=== PATIENT | female | born 1940 | race Caucasian/White ===

== ENCOUNTER 2018-07-21 08:46 | Emergency (ER) | payer OTHER ==
[~2018-07-21] VITALS: Ht 165.1 cm; Wt 72.7 kg
[2018-07-21 08:48] VITALS: Ht 165.1 cm; Wt 72.7 kg
[2018-07-21] MEDS ORDERED: LISINOPRIL10 MG PO (08:51)
[2018-07-21] MEDS ORDERED: LEVO-T125 MCG PO (08:51)
[2018-07-21] MEDS ORDERED: NEXIUM20 MG PO (08:52)
[2018-07-21] MEDS ORDERED: ALENDRONATE SOD10 MG PO (08:53)
[2018-07-21] MEDS ORDERED: CYCLOBENZAPRINE10 MG PO (10:11)
[2018-07-21] MEDS ORDERED: DILAUDID2 MG PO (10:13)
[2018-07-21 11:11] VITALS: BP 145/79
== END 2018-07-21 11:12 | disposition home or self-care (01) ==
LOC: D.ER 08:46
DX: S39.012A Strain of muscle, fascia and tendon of lower back, initial encounter (principal); X50.9XXA Other and unspecified overexertion or strenuous movements or postures, initial encounter; Y93.89 Activity, other specified; Y92.89 Other specified places as the place of occurrence of the external cause

== ENCOUNTER 2018-09-10 17:50 | Emergency (ER) | payer OTHER ==
[~2018-09-10] VITALS: Ht 165.1 cm; Wt 73.6 kg
[~2018-09-10 17:50] MED LIST: ALENDRONATE SOD10 MG PO; CYCLOBENZAPRINE10 MG PO; DILAUDID2 MG PO; LEVO-T125 MCG PO; LISINOPRIL10 MG PO; NEXIUM20 MG PO
[2018-09-10 17:55] VITALS: Ht 165.1 cm; Wt 73.6 kg
[2018-09-10] MEDS ORDERED: PROTONIX40 MG PO (17:58)
[2018-09-10 18:51] LABS: ALBUMIN 3.2 g/dL (3.4-5.0); ALKALINE PHOSPHATASE 29 U/L (46-116); ALT (SGPT) 21 U/L (10-68); BILIRUBIN - TOTAL 0.19 mg/dL (0.2-1.3); CALC OSMOLALITY 286 mosm/kg (275-300); CALCIUM 7.8 mg/dL (8.5-10.1); CARBON DIOXIDE 26.4 mmol/L (21.0-32.0); CHLORIDE - SERUM 112 mmol/L (98-107); CREATININE - SERUM 0.9 mg/dL (0.6-1.3); GLUCOSE 125 mg/dL (74-106); POTASSIUM - SERUM 4.1 mmol/L (3.5-5.1); PROTEIN - SERUM 5.6 g/dL (6.4-8.2); SODIUM 143 mmol/L (136-145); UREA NITROGEN 14 mg/dL (7-18); eGFR NON AFRICAN AMERICAN 64 mL/min (90-120)
[2018-09-10 18:56] LABS: AMYLASE - SERUM 33 U/L (25-115); BASOPHILS 0.4 % (0-2); EOSINOPHILS 0.4 % (0-7); HEMATOCRIT 34.7 % (36.0-48.0); HEMOGLOBIN 11.6 g/dL (12-16); IMMATURE GRANULOCYTES 0.2 % (0-5); LIPASE 193 U/L (73-393); LYMPHOCYTES 12.2 % (15-50); MCH 30.5 pg (26.0-34.0); MCHC 33.4 g/dL (31.0-37.0); MCV 91.3 fL (80.0-100.0); MEAN PLATELET VOLUME 10.6 fL (7.4-10.4); NEUTROPHILS 79.8 % (40-80); PLATELET COUNT 161 10x3/uL (130-400); RDW 13.2 % (11.5-14.5); TROPONIN-I < 0.017 ng/mL (0.000-0.060); WBC 5.2 10x3/uL (4.8-10.8)
[2018-09-10 19:06] LABS: APPEARANCE CLEAR (CLEAR); BACTERIA FEW /hpf (NONE SEEN); BILIRUBIN NEGATIVE (NEGATIVE); COLOR YELLOW (YELLOW); GLUCOSE NEGATIVE (NEGATIVE); KETONE NEGATIVE (NEGATIVE); NITRITE NEGATIVE (NEGATIVE); PROTEIN NEGATIVE (NEGATIVE); RED CELLS - URINE OCC /hpf (0-5); UROBILINOGEN NORMAL (NORMAL); WHITE CELLS - URINE OCC /hpf (0-5)
[2018-09-10] MEDS ORDERED: ONDANSETRON8 MG/TAB PO (19:43)
[2018-09-10] MEDS ORDERED: CIPRO500 MG PO (19:43)
[2018-09-10 21:24] VITALS: BP 138/77
== END 2018-09-10 21:25 | disposition home or self-care (01) ==
LOC: D.ER 17:50
PROVIDERS: Family Medicine
DX: R11.2 Nausea with vomiting, unspecified (principal); N39.0 Urinary tract infection, site not specified

== ENCOUNTER → 2018-09-23 13:41 | Outpatient (CLI) | payer OTHER ==
[2018-09-10 17:55] VITALS: BMI 27.0
[~2018-09-23 13:41] MED LIST changes: +CIPRO500 MG PO; +ONDANSETRON8 MG/TAB PO; +PROTONIX40 MG PO
== END | disposition home or self-care (01) ==
LOC: D.HCCARDIO 13:41
PROVIDERS: ATTEND Internal Medicine Cardiovascular Disease
DX: R07.9 Chest pain, unspecified (principal)

== ENCOUNTER → 2018-09-25 08:26 | Outpatient (CLI) | payer OTHER ==
[2018-09-10 17:55] VITALS: BMI 27.0
--- NOTE | 2018-09-27 09:40 | ST ---
PATIENT:RACQUEL BRUNO MEDICAL RECORD: [id number] SEX: F LOCATION:[facility] ORDER #: ADMISSION DATE: 09/25/18 AGE OF PATIENT: 77 REFERRING PHYSICIAN: INTERPRETING PHYSICIAN: SUMMER GUTIERRES MD DATE OF SERVICE: 09/25/2018 PROCEDURE: Nuclear stress test. INDICATIONS: Angina, hypertension, shortness of breath, dyspnea on exertion. She was exercised on standard Lexiscan protocol with 30 mCi of sestamibi injected at peak stress, 11 mCi were used previously for rest images. FINDINGS: Gated SPECT reveals preserved ejection fraction at 65% with good wall motion and thickening and brightening throughout all segments. SPECT imaging Cardiolite was used as myocardial perfusion agent. There is homogeneous uptake throughout all segments at rest and stress with no evidence of inducible ischemia or previous infarction. OVERALL IMPRESSION: 1. This is a normal nuclear stress test with no evidence of inducible ischemia or previous infarction. 2. Gated SPECT reveals a preserved ejection fraction at 65%. In this patient with ongoing symptomatology, the current scan does not suggest the presence of hemodynamically significant coronary artery disease. Evaluate noncardiac etiology of chest pain. TRANSINT:[id number] Voice Confirmation ID: [id number] DOCUMENT ID: [id number] SUMMER GUTIERRES MD at 0940 CC: SULEIMAN FLOWERS MD [id number] DICTATION DATE: 09/25/18 1612 CLEARANCE REPRESENTATIVE: 09/26/18 1016 [facility] CLI 09/25/18 [id number] [place] [address]
== END | disposition home or self-care (01) ==
LOC: D.HCCARDIO 09-17 10:30
PROVIDERS: ATTEND Internal Medicine Cardiovascular Disease
DX: I20.9 Angina pectoris, unspecified (principal)

== ENCOUNTER 2020-08-10 23:29 | Emergency (ER) | payer OTHER ==
[~2020-08-10] VITALS: Ht 165.1 cm; Wt 71.4 kg
[~2020-08-10 23:29] MED LIST changes: +AUGMENTIN 875-11 TAB PO; +VASOTEC2.5 MG PO
[2020-08-10 23:35] VITALS: Ht 165.1 cm; Wt 71.4 kg
[2020-08-11 00:19] LABS: BASOPHILS 0.1 % (0-2); EOSINOPHILS 0.7 % (0-7); HEMATOCRIT 37.3 % (36.0-48.0); HEMOGLOBIN 12.4 g/dL (12-16); LYMPHOCYTE ABS# 0.65 10x3/uL (1.18-3.74); LYMPHOCYTES 7.4 % (15-50); MCH 30.2 pg (26.0-34.0); MCHC 33.2 g/dL (31.0-37.0); MEAN PLATELET VOLUME 9.7 fL (7.4-10.4); MONOCYTES 10.1 % (2-11); NEUTROPHIL ABS# 7.18 10x3/uL (1.56-6.13); NEUTROPHILS 81.7 % (40-80); PLATELET COUNT 320 10x3/uL (130-400); RDW 13.4 % (11.5-14.5); WBC 8.8 10x3/uL (4.8-10.8)
[2020-08-11 00:31] LABS: CALC OSMOLALITY 285 mosm/kg (275-300); CALCIUM 8.9 mg/dL (8.5-10.1); CARBON DIOXIDE 28.8 mmol/L (21.0-32.0); CHLORIDE - SERUM 107 mmol/L (98-107); GLUCOSE 125 mg/dL (74-106); POTASSIUM - SERUM 3.7 mmol/L (3.5-5.1); SODIUM 142 mmol/L (136-145); UREA NITROGEN 19 mg/dL (7-18); eGFR NON AFRICAN AMERICAN 57 mL/min (90-120)
[2020-08-11 00:36] LABS: BILIRUBIN NEGATIVE (NEGATIVE); KETONE NEGATIVE (NEGATIVE); NITRITE NEGATIVE (NEGATIVE); UROBILINOGEN NORMAL mg/dL (< 2)
[2020-08-11 00:37] LABS: BACTERIA FEW HPF (NONE SEEN); SQUAMOUS EPITHELIAL 0-5 HPF (0-4); WHITE CELLS - URINE 0-5 HPF (0-4)
[2020-08-11 00:41] LABS: ALBUMIN 3.5 g/dL (3.4-5.0); ALKALINE PHOSPHATASE 41 U/L (30-120); ALT (SGPT) 20 U/L (10-68); AMYLASE - SERUM 31 U/L (25-115); BILIRUBIN - TOTAL 0.24 mg/dL (0.2-1.3); LIPASE 117 U/L (73-393); PROTEIN - SERUM 6.4 g/dL (6.4-8.2); TROPONIN-I < 0.017 ng/mL (0.000-0.060)
[2020-08-11] MEDS ORDERED: ZOFRAN ODT4 MG/UDTAB PO (01:35)
[2020-08-11] MEDS ORDERED: LOMOTIL 2.5-0.1 EAC1 PO (01:35)
[2020-08-11 02:20] VITALS: BP 141/57
== END 2020-08-11 02:21 | disposition home or self-care (01) ==
LOC: D.ER 23:29
PROVIDERS: Family Medicine
DX: A08.4 Viral intestinal infection, unspecified (principal); Z86.73 Personal history of transient ischemic attack (TIA), and cerebral infarction without residual deficits; I10 Essential (primary) hypertension; K21.9 Gastro-esophageal reflux disease without esophagitis

== ENCOUNTER 2020-09-16 21:17 | Emergency (ER) | payer OTHER ==
[~2020-09-16] VITALS: Ht 165.1 cm; Wt 75.5 kg
[~2020-09-16 21:17] MED LIST changes: +LOMOTIL 2.5-0.1 EAC1 PO; +ZOFRAN ODT4 MG/UDTAB PO
[2020-09-16 21:23] VITALS: Ht 165.1 cm; Wt 75.5 kg
[2020-09-16 23:00] LABS: BASOPHILS 0.3 % (0-2); EOSINOPHILS 0.2 % (0-7); HEMATOCRIT 34.8 % (36.0-48.0); HEMOGLOBIN 11.7 g/dL (12-16); LYMPHOCYTES 11.9 % (15-50); MCH 29.8 pg (26.0-34.0); MCHC 33.5 g/dL (31.0-37.0); MEAN PLATELET VOLUME 7.1 fL (7.4-10.4); MONOCYTES 8.7 % (2-11); NEUTROPHILS 78.9 % (40-80); PLATELET COUNT 274 10x3/uL (130-400); RBC 3.91 10x6/uL (4.00-5.40); WBC 5.7 10x3/uL (4.8-10.8)
[2020-09-16 23:06] LABS: APTT 34.3 SECONDS (22.8-39.4); INR 1.22 (0.85-1.17); PROTIME 14.3 SECONDS (11.6-15.0)
[2020-09-16 23:07] LABS: CALC OSMOLALITY 276 mosm/kg (275-300); CALCIUM 7.8 mg/dL (8.5-10.1); CARBON DIOXIDE 27.5 mmol/L (21.0-32.0); CHLORIDE - SERUM 103 mmol/L (98-107); CREATININE - SERUM 1.1 mg/dL (0.6-1.3); GLUCOSE 119 mg/dL (74-106); POTASSIUM - SERUM 3.9 mmol/L (3.5-5.1); SODIUM 137 mmol/L (136-145); UREA NITROGEN 19 mg/dL (7-18); eGFR NON AFRICAN AMERICAN 51 mL/min (90-120)
[2020-09-16 23:25] LABS: ALBUMIN 2.3 g/dL (3.4-5.0); ALKALINE PHOSPHATASE 48 U/L (30-120); ALT (SGPT) 18 U/L (10-68); BILIRUBIN - TOTAL 0.39 mg/dL (0.2-1.3); CKMB 0.2 U/L (0.0-3.6); CREATINE KINASE 15 UL (21-215); PRO BNP 71 pg/mL (0-450); PROTEIN - SERUM 5.6 g/dL (6.4-8.2)
[2020-09-16 23:45] LABS: TROPONIN-I < 0.017 ng/mL (0.000-0.060)
[2020-09-17 00:27] LABS: AMYLASE - SERUM 33 U/L (25-115); LIPASE 77 U/L (73-393); PRO BNP 75 pg/mL (0-450)
[2020-09-17] MEDS ORDERED: ZOFRAN ODT4 MG/UDTAB PO (06:55)
[2020-09-17 07:11] VITALS: BP 130/70
== END 2020-09-17 07:11 | disposition home or self-care (01) ==
LOC: D.ER 21:17
PROVIDERS: Emergency Medicine
DX: J12.9 Viral pneumonia, unspecified (principal); R53.1 Weakness; R11.0 Nausea; Z20.822 Contact with and (suspected) exposure to COVID-19; Z86.73 Personal history of transient ischemic attack (TIA), and cerebral infarction without residual deficits; I10 Essential (primary) hypertension; K21.9 Gastro-esophageal reflux disease without esophagitis

== ENCOUNTER 2020-09-20 19:41 | Emergency (ER) | payer OTHER ==
[~2020-09-20] VITALS: Ht 165.1 cm; Wt 74.5 kg
[2020-09-20 19:43] VITALS: Ht 165.1 cm; Wt 74.5 kg
[2020-09-20] MEDS ORDERED: MYRBETRIQ50 MG (19:48)
[2020-09-20] MEDS ORDERED: MYRBETRIQ50 MG PO (19:49)
[2020-09-20 20:38] LABS: BASOPHILS 0.1 % (0-2); EOSINOPHILS 0.8 % (0-7); HEMATOCRIT 39.4 % (36.0-48.0); LYMPHOCYTES 5.9 % (15-50); MCHC 33.1 g/dL (31.0-37.0); MCV 90.7 fL (80.0-100.0); MEAN PLATELET VOLUME 7.6 fL (7.4-10.4); NEUTROPHILS 88.2 % (40-80); PLATELET COUNT 302 10x3/uL (130-400); RBC 4.34 10x6/uL (4.00-5.40); WBC 12.3 10x3/uL (4.8-10.8)
[2020-09-20 21:30] LABS: CALC OSMOLALITY 289 mosm/kg (275-300); CALCIUM 8.2 mg/dL (8.5-10.1); CARBON DIOXIDE 28.1 mmol/L (21.0-32.0); CHLORIDE - SERUM 106 mmol/L (98-107); GLUCOSE 135 mg/dL (74-106); POTASSIUM - SERUM 4.1 mmol/L (3.5-5.1); SODIUM 144 mmol/L (136-145); UREA NITROGEN 14 mg/dL (7-18); eGFR NON AFRICAN AMERICAN 57 mL/min (90-120)
[2020-09-20 21:40] LABS: ALBUMIN 2.7 g/dL (3.4-5.0); ALKALINE PHOSPHATASE 56 U/L (30-120); ALT (SGPT) 22 U/L (10-68); AMYLASE - SERUM 114 U/L (25-115); BILIRUBIN - TOTAL 0.37 mg/dL (0.2-1.3); LIPASE 122 U/L (73-393); PROTEIN - SERUM 5.7 g/dL (6.4-8.2); TROPONIN-I < 0.017 ng/mL (0.000-0.060)
[2020-09-20] MEDS ORDERED: MIRALAX17 GM PO (22:21)
[2020-09-20 23:14] VITALS: BP 115/72
== END 2020-09-20 23:14 | disposition home or self-care (01) ==
LOC: D.ER 19:41
PROVIDERS: Emergency Medicine
DX: K59.00 Constipation, unspecified (principal); I10 Essential (primary) hypertension; E03.9 Hypothyroidism, unspecified